=== PATIENT | male | born 1995 | race Caucasian/White ===

== ENCOUNTER 2021-04-14 15:01 | Outpatient (CLI) | payer BC, SELFPAY ==
[2021-04-14 16:36] LABS: Basophils Percent Auto 0.5 % (0.2-1.2); Hematocrit 45.6 % (42.0-52.0); Hemoglobin 15.5 g/dL (14.0-18.0); Lymphocytes Absolute Auto 1.35 K/mm3 (0.9-3.2); Lymphocytes Percent Auto 23.9 % (18.3-44.2); Mean Corpuscular Hemoglobin 30.2 pg (26-34); Mean Corpuscular Volume 88.7 fl (80-100); Mean Platelet Volume 10.2 fl (7.4-10.4); Monocytes Absolute Auto 0.6 K/mm3 (0.1-0.6); Neutrophils Absolute Auto 3.7 K/mm3 (1.3-6.7); Neutrophils Percent Auto 64.6 % (45.5-73.1); Platelet Count Result 265 k/mm3 (150-375); Red Blood Count 5.14 M/mm3 (4.6-6.20); White Blood Count 5.7 K/mm3 (4.5-10.0)
== END 2021-04-14 15:02 | disposition home or self-care (01) ==
LOC: ANHWCLAB 15:05
PROVIDERS: PCP Internal Medicine; Referring Provider Internal Medicine Endocrinology, Diabetes & Metabolism; Visit Provider Internal Medicine Endocrinology, Diabetes & Metabolism
DX: E05.90 Thyrotoxicosis, unspecified without thyrotoxic crisis or storm (principal)
CPT/HCPCS: 36415; 85025

== ENCOUNTER 2021-07-19 08:05 | Emergency (ER) | payer OTHER, BC, SELFPAY ==
[2021-07-19 08:16] VITALS: BP 141/73; PULSE 53; RESP 16; TEMP 36.8; O2SAT 100
--- NOTE | 2021-07-19 08:35 | ED.SKABFB ---
HPI - Skin/Abscess/Foreign Bdy General Chief complaint: Skin/Abscess/Foreign Body Stated complaint: right 1st digit toe pain Time Seen by Provider: 07/19/21 08:22 Source: patient and RN notes reviewed Mode of arrival: ambulatory Limitations: no limitations History of Present Illness HPI narrative: Patient presents today complaining of an injury to his right great toe. He stubbed it 3 days ago when a bed at home and has had a blister just proximal to the toenail ever since. The toe has become increasingly erythematous and edematous since that time as well. It is very painful and he currently rates his pain 7/10. He has been applying ice and taking ibuprofen without much relief. It is difficult for him to wear shoe. He is up-to-date on his tetanus vaccine. MD complaint: abscess/boil Related Data Home Medications Medication Instructions Recorded Confirmed methimazole 10 mg tablet 40 mg PO DAILY tablet 04/14/21 07/19/21 Allergies Allergy/AdvReac Type Severity Reaction Status Date / Time No Known Allergies Allergy Verified 07/19/21 08:26 Review of Systems Review of Systems: CONSTITUTIONAL: Denies body aches, fever, chills, or sweats. EYES: Denies visual changes, redness, or discharge. ENT: Denies rhinorrhea, congestion, sore throat, or otalgia. CARDIOVASCULAR: Denies chest pain, palpitations, or edema. RESPIRATORY: Denies cough or dyspnea. GASTROINTESTINAL: Denies abdominal pain, nausea, vomiting, or diarrhea. GENITOURINARY: Denies dysuria or hematuria. SKIN: Denies rash, itching, or wounds.+ Blister, swelling and erythema to the right great toe. MUSCULOSKELETAL: Denies back pain, joint pain, or myalgia. NEUROLOGIC: Denies headache, numbness, tingling, or weakness. PSYCH: Denies depression or anxiety. [facility] Family History Family History Sibling Depression Mother Patient's mother is in good health Father Patient's father is in good health Other Asthma Diabetes mellitus Family history of thyroid disease Hypertension Social History Social History Smoking packs per day: 0.5 Smoking cigarettes per day: 10.0 Years smoked: 2 Smoking pack-years: 1.00 Smoking status: Current every day smoker (vaping) Tobacco type: cigarettes Smoking end date: 05/27/20 Alcohol intake: never Substance use: never Comments At time of signature, I have reviewed and agree with nursing past medical, surgical, social and family history unless otherwise noted. Please see nursing chart for further information. There is no relevant family history pertinent to the presenting complaint Exam Narrative: GENERAL: Well-appearing, well-nourished, and in no acute distress. HEAD: Normocephalic, atraumatic. EYES: EOMI. No redness or drainage. Conjunctivae normal. ENT: Mucous membranes pink and moist. NECK: Normal AROM. CHEST: No respiratory distress. EXTREMITIES: Right great toe: Mild to moderately edematous. Mildly erythematous. 3 x 1 cm dark fluid-filled blister to the base of the toe, just proximal to the toenail. Toenail unaffected. Toe is tender to palpation. Scant amount of clear fluid draining from the medial portion of the blister. Distal sensation intact. Capillary refill normal. Pedal pulse normal. Full range of motion of the toe. 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 SKIN: Warm, dry, no rash. Capillary refill normal. Normal skin turgor. NEURO: No focal deficits. Alert and oriented x3. Gait steady. PSYCH: Normal affect. No signs of depression or anxiety. Course Course Level of Care: Express Care Visit Vital Signs Vital signs: Vital Signs Temperature 98.2 F 07/19/21 08:16 Pulse Rate 53 L 07/19/21 08:16 Respiratory Rate 16 07/19/21 08:16 Blood Pressure 141/73 H 07/19/21 08:16 Pulse Oximetry 100 07/19/21 08:16 Temperature 98.2 F 07/19/21 08:16
== END 2021-07-19 08:50 | disposition home or self-care (01) ==
PROVIDERS: Emergency Provider Nurse Practitioner
DX: L03.031 Cellulitis of right toe (principal); S90.421A Blister (nonthermal), right great toe, initial encounter; W22.03XA Walked into furniture, initial encounter; F17.290 Nicotine dependence, other tobacco product, uncomplicated
CPT/HCPCS: 10140; 99213; G0463

== ENCOUNTER 2021-11-11 09:37 | Outpatient (CLI) | payer OTHER, SELFPAY ==
[2021-11-11 10:43] LABS: Hematocrit 45.8 % (42.0-52.0); Hemoglobin 15.3 g/dL (14.0-18.0); Mean Corpuscular HGB Conc 33.4 g/dl (32-36); Mean Corpuscular Hemoglobin 29.8 pg (26-34); Mean Corpuscular Volume 89.3 fl (80-100); Platelet Count Result 249 k/mm3 (150-375); Red Blood Count 5.13 M/mm3 (4.6-6.20); White Blood Count 4.7 K/mm3 (4.5-10.0)
[2021-11-11 10:53] LABS: Alanine Aminotransferase 16 U/L (6-50); Alkaline Phosphatase 48 U/L (38-126); Anion Gap 10 mmol/L (8-16); Aspartate Amino Transferase 24 U/L (17-59); Bilirubin,Total 0.4 mg/dL (0.2-1.3); Blood Urea Nitrogen 11 mg/dL (9-20); Carbon Dioxide 29 mmol/L (22-30); Chloride 100 mmol/L (98-107); Estimated Glomerular Filt Rate > 60; Glucose 105 mg/dL (65-110); Potassium 4.3 mmol/L (3.4-5.0); Sodium 139 mmol/L (137-145)
[2021-11-11 11:12] LABS: Free T4 Free Thyroxine 0.79 ng/mL (0.78-2.19)
[2021-11-15 06:42] LABS: Triiodothyronine T3 Free 3.3 pg/mL (2.3-4.2)
== END 2021-11-11 09:38 | disposition home or self-care (01) ==
LOC: ANHLAB 09:39
PROVIDERS: PCP Internal Medicine; Visit Provider Internal Medicine Endocrinology, Diabetes & Metabolism
DX: E04.9 Nontoxic goiter, unspecified (principal); E05.90 Thyrotoxicosis, unspecified without thyrotoxic crisis or storm
CPT/HCPCS: 36415; 80053; 84439; 84443; 84481; 85027

== ENCOUNTER 2022-05-13 11:08 | Outpatient (CLI) | payer OTHER, SELFPAY ==
[2022-05-13 13:24] LABS: Free T4 Free Thyroxine < 0.07 ng/mL (0.78-2.19)
[2022-05-13 13:41] LABS: Thyroid Stimulating Hormone > 100.000 uIU/mL (0.465-4.680)
[2022-05-20 20:35] LABS: Triiodothyronine T3 Free <0.5 pg/mL (2.3-4.2)
== END 2022-05-13 11:09 | disposition home or self-care (01) ==
LOC: ANHWCLAB 11:09
PROVIDERS: Visit Provider Internal Medicine Endocrinology, Diabetes & Metabolism
DX: E05.90 Thyrotoxicosis, unspecified without thyrotoxic crisis or storm (principal); E04.9 Nontoxic goiter, unspecified
CPT/HCPCS: 36415; 84439; 84443; 84481

== ENCOUNTER 2022-06-25 11:35 | Outpatient (CLI) | payer OTHER, SELFPAY ==
[2022-06-25 12:42] LABS: Free T4 Free Thyroxine 0.75 ng/mL (0.78-2.19)
== END 2022-06-25 11:36 | disposition home or self-care (01) ==
LOC: ANHLAB 11:39
PROVIDERS: PCP Internal Medicine; Visit Provider Internal Medicine Endocrinology, Diabetes & Metabolism
DX: E89.0 Postprocedural hypothyroidism (principal)
CPT/HCPCS: 36415; 84439; 84443

== ENCOUNTER 2022-08-15 19:08 | Emergency (ER) | payer OTHER, SELFPAY ==
--- NOTE | ~2022-08-15 | CT_ITS ---
EXAMINATION: CT facial bones wo con DATE: 08/15/2022 21:04 INDICATION: hit by tree branch . TECHNIQUE: Computed tomography (CT) of the facial bones and maxillofacial region was performed withou t intravenous contrast. Automated exposure control and iterative reconstruction technique were employ ed. The dose-length product was 274.28 mGy-cm. COMPARISON: None. FINDINGS: Soft Tissues: Left frontal/periorbital laceration and contusion. Facial bones: No acute fracture. No lytic or blastic process. Likely old and nondisplaced nasal bone and maxillary spine fractures. Eyes: The globes are intact. The soft tissue planes of the orbits are maintained. Paranasal Sinuses: The visualized aerated spaces are clear. Foreign Bodies: No radiopaque foreign bodies. Other Findings: None. IMPRESSION: No evidence of acute facial bone fracture. Reviewed, dictated and finalized at location K.
--- NOTE | ~2022-08-15 | CT_ITS ---
EXAMINATION: CT brain wo con DATE: 08/15/2022 21:02 INDICATION: head injury . TECHNIQUE: Computed tomography (CT) of the head was performed without intravenous contrast. The mA wa s adjusted according to patient size. Iterative reconstruction technique was employed. The dose-lengt h product was 605.33 mGy-cm. COMPARISON: CT brain 01/29/2014. FINDINGS: No acute intracranial hemorrhage or extra-axial fluid collection. No hydrocephalus, mass, or herniation. No acute ischemic infarct. Unremarkable dural venous sinus attenuation. No acute osseous abnormality. Left frontal/periorbital laceration and contusion. The aerated spaces are clear. IMPRESSION: No acute intracranial process. Reviewed, dictated and finalized at location K.
[2022-08-15 19:18] VITALS: BP 132/77; PULSE 51; RESP 16; TEMP 36.7; O2SAT 99
--- NOTE | 2022-08-15 20:52 | ED.GENADULT ---
HPI - General Adult General Chief complaint: Wound/Laceration Stated complaint: laceration L eyebrow Time Seen by Provider: 08/15/22 19:58 Source: patient Mode of arrival: ambulatory Limitations: no limitations History of Present Illness HPI narrative: This is a 27-year-old male with PMH of Graves' disease who presents to the ED chief complaint of a head injury occurring this evening. Patient was trimming a tree and had a branch come back and hit him in the left side of the face. Reports a left abrasion to the left eyebrow and bridge of the nose.. States his tetanus is up-to-date. Patient reports some initial dizziness but has not had any loss of consciousness. Denies any neurologic symptoms. Denies any further site of pain. Related Data Allergies Allergy/AdvReac Type Severity Reaction Status Date / Time No Known Allergies Allergy Verified 08/15/22 19:41 Review of Systems Review of Systems: CONSTITUTIONAL: Denies fever, chills, or sweats. EYES: Denies visual changes, redness, or discharge. ENT: Denies rhinorrhea, congestion, sore throat, or otalgia. CARDIOVASCULAR: Denies chest pain, palpitations, or edema. RESPIRATORY: Denies cough or dyspnea. GASTROINTESTINAL: Denies abdominal pain, nausea, vomiting, or diarrhea. GENITOURINARY: Denies dysuria or hematuria. SKIN: See HPI MUSCULOSKELETAL: See HPI NEUROLOGIC: Denies headache, numbness, dizziness, or weakness. PSYCHIATRIC: Denies anxiety or depression. [facility] Past Medical History Medical History Acquired deformity of finger of both hands Acquired deformity of toe of both feet Body mass index [BMI] 22.0-22.9, adult (09/05/18) Body mass index [BMI] pediatric, less than 5th percentile for age (12/16/17) Dietary counseling and surveillance Encounter for routine adult health examination without abnormal findings Encounter to establish care with new doctor Tobacco use Surgical History Surgical History H/O radioactive iodine thyroid ablation Family History Family History Sibling Depression Mother Patient's mother is in good health Father Patient's father is in good health Other Asthma Diabetes mellitus Family history of thyroid disease Hypertension Social History Social History Smoking packs per day: 0.5 Smoking cigarettes per day: 10.0 Years smoked: 2 Smoking pack-years: 1.00 Smoking status: Former smoker (vaping) Tobacco type: e-cigarettes/vaping Second hand tobacco smoke exposure: Yes Smoking end date: 05/27/20 Alcohol intake: current Drinks per week: 2 Substance use: current Substance use type: marijuana Lack of Transportation: No Lack of Food: Never True Current Housing: I Have Housing Concerned About Future Housing: No Difficulty Paying Gas/Electric Bills: No Difficulty Paying for Meds: No Currently Unemployed: No Education: High School Diploma/GED Difficulty w/ Childcare or Family Care: No Exam Narrative: GENERAL: Well-appearing, well-nourished, and in no acute distress. HEAD: Normocephalic, atraumatic. EYES: PERRLA and EOMI. ENT: Nares clear, no rhinorrhea or epistaxis. Mucous membranes moist. Oropharynx without tonsillar hypertrophy exudate or other lesions. Slight ecchymosis to the bridge of the nose and the left infraorbital region. NECK: Supple. No adenopathy or masses. CHEST: No respiratory distress. Clear to auscultation. No wheezes rales or rhonchi HEART: Regular rate and rhythm. No murmur heard. Normal peripheral pulses. ABDOMEN: Soft, nontender, nondistended, normal active bowel sounds. MSK: Normal range of motion. No edema. SKIN: 1.5 cm laceration to the medial left eyebrow. There is a very small superficial laceration to the bridge of the nose. No active bleeding. No obvious foreign bodies. Warm, dry, no
== END 2022-08-15 22:28 | disposition home or self-care (01) ==
PROVIDERS: Emergency Provider Physician Assistant; PCP Internal Medicine
DX: S01.112A Laceration without foreign body of left eyelid and periocular area, initial encounter (principal); S01.21XA Laceration without foreign body of nose, initial encounter; E05.00 Thyrotoxicosis with diffuse goiter without thyrotoxic crisis or storm; Z87.891 Personal history of nicotine dependence; W22.8XXA Striking against or struck by other objects, initial encounter
CPT/HCPCS: 12011; 70450; 70486; 99284

== ENCOUNTER 2022-08-19 09:35 | Outpatient (CLI) | payer OTHER, SELFPAY ==
[2022-08-19 10:42] LABS: Free T4 Free Thyroxine 0.84 ng/mL (0.78-2.19)
== END 2022-08-19 09:36 | disposition home or self-care (01) ==
LOC: ANHLAB 09:36
PROVIDERS: PCP Family Medicine; Visit Provider Internal Medicine Endocrinology, Diabetes & Metabolism
DX: E89.0 Postprocedural hypothyroidism (principal)
CPT/HCPCS: 36415; 84439; 84443

== ENCOUNTER 2022-09-23 17:58 | Emergency (ER) | payer OTHER, SELFPAY ==
--- NOTE | 2022-09-23 18:03 | ED.URI ---
HPI - URI/Sore Throat General Chief Complaint: Upper Respiratory Infection Stated Complaint: Sore throat; Fever; Chills; Headaches Time Seen by Provider: 09/23/22 18:28 Source: patient and RN notes reviewed Mode of arrival: ambulatory Limitations: no limitations History of Present Illness HPI Narrative: 27-year-old male presents with concern for sore throat, fever, chills, headache. Reports he was exposed to his uncle with strep throat. He reports the symptoms started yesterday. Reports he has been taking Tylenol elicited complaint: fever and sore throat Related Data Allergies Allergy/AdvReac Type Severity Reaction Status Date / Time No Known Allergies Allergy Verified 09/23/22 18:18 Review of Systems Review of Systems: CONSTITUTIONAL: Reports fever and chills EYES: Denies visual changes, redness, or discharge. ENT: Denies rhinorrhea, congestion, sinus pain, otalgia. Reports sore throat. CARDIOVASCULAR: Denies chest pain, palpitations, or edema. RESPIRATORY: Reports cough. Denies dyspnea. GASTROINTESTINAL: Denies abdominal pain, nausea, vomiting, diarrhea SKIN: Denies rash or itching. MUSCULOSKELETAL: Denies myalgia. NEUROLOGIC: Reports headache. All systems reviewed & are unremarkable except as noted in HPI and below PMFSH Past Medical History Medical History Acquired deformity of finger of both hands Acquired deformity of toe of both feet Body mass index [BMI] 22.0-22.9, adult (09/05/18) Cellulitis Encounter to establish care with new doctor Graves disease Hyperthyroidism Postablative hypothyroidism Tobacco use Surgical History Surgical History H/O radioactive iodine thyroid ablation Family History Family History Sibling Depression Mother Patient's mother is in good health Father Patient's father is in good health Other Asthma Diabetes mellitus Family history of thyroid disease Hypertension Social History Social History (Updated 09/15/22 @ 08:50 by Maryann Lopez CMA) Smoking packs per day: 0.5 Smoking cigarettes per day: 10.0 Years smoked: 2 Smoking pack-years: 1.00 Smoking status: Current every day smoker (vaping) Tobacco type: cigarettes and e-cigarettes/vaping Second hand tobacco smoke exposure: Yes Alcohol intake: current Drinks per week: 2 Alcohol use details: socially Substance use: current Substance use type: marijuana Lack of Transportation: No Lack of Food: Never True Current Housing: I Have Housing Concerned About Future Housing: No Difficulty Paying Gas/Electric Bills: No Difficulty Paying for Meds: No Currently Unemployed: No Education: High School Diploma/GED Difficulty w/ Childcare or Family Care: No Comments At time of signature, agree with nursing past medical, surgical, social and family history. There is no relevant family history pertinent to the presenting complaint Exam Narrative: GENERAL: Well-appearing, well-nourished, and in no acute distress. HEAD: Normocephalic EYES: PERRLA, conjunctivae clear ENT: Nares clear. Mucous membranes moist. TM pearly cortez with sharp light reflex bilaterally; no tragal tenderness. Oropharynx erythematous without lesions. Tonsils enlarged and without exudate, no drooling, no hoarseness, no trismus, uvula midline. NECK: Supple. No lymphadenopathy CHEST: Clear to auscultation, breath sounds equal. No wheezing, rhonchi, rales, or stridor. No respiratory distress, speaks in full sentences. HEART: Regular rate and rhythm. No murmur heard. SKIN: Warm, dry, no rash. NEURO: Alert and oriented x3. PSYCH: Normal mood and affect Course Course Emergency Course: Patient is aware of diagnosis, understands and agrees to treatment plan. Anticipatory guidance given. Patient agrees to follow-up as directed and is aware of reasons to seek care at the emergency departm
[2022-09-23 18:10] VITALS: BP 140/84; PULSE 60; RESP 12; TEMP 36.7; O2SAT 99
== END 2022-09-23 18:41 | disposition home or self-care (01) ==
PROVIDERS: Emergency Provider Nurse Practitioner; PCP Family Medicine
DX: J02.0 Streptococcal pharyngitis (principal); F17.210 Nicotine dependence, cigarettes, uncomplicated; F17.290 Nicotine dependence, other tobacco product, uncomplicated; E05.00 Thyrotoxicosis with diffuse goiter without thyrotoxic crisis or storm; E89.0 Postprocedural hypothyroidism
CPT/HCPCS: 87880; 99213; G0463

== ENCOUNTER 2022-11-27 11:16 | Outpatient (CLI) | payer OTHER, SELFPAY ==
[2022-11-27 13:12] LABS: Free T4 Free Thyroxine 0.89 ng/mL (0.78-2.19)
== END 2022-11-27 11:17 | disposition home or self-care (01) ==
LOC: ANHLAB 11:17
PROVIDERS: PCP Family Medicine; Visit Provider Internal Medicine Endocrinology, Diabetes & Metabolism
DX: E89.0 Postprocedural hypothyroidism (principal)
CPT/HCPCS: 36415; 84439; 84443

== ENCOUNTER 2023-09-09 14:08 | Outpatient (CLI) | payer OTHER, SELFPAY ==
[2023-09-09 18:42] LABS: Free T4 Free Thyroxine 1.17 ng/mL (0.78-2.19)
== END 2023-09-09 14:09 | disposition home or self-care (01) ==
LOC: ANHWCLAB 14:09
PROVIDERS: PCP Family Medicine; Visit Provider Internal Medicine Endocrinology, Diabetes & Metabolism
DX: E89.0 Postprocedural hypothyroidism (principal)
CPT/HCPCS: 36415; 84439; 84443